=== PATIENT | male | born 1975 | race Two or more races ===

== ENCOUNTER 2016-09-29 09:11 | Outpatient (CLI) | payer MEDICAID | END 2016-09-29 09:12 | disposition home or self-care (01) | DX: R05 Cough (principal) ==

== ENCOUNTER 2016-11-14 09:53 | Outpatient (CLI) | payer MEDICAID ==
[2016-11-14 18:03] LABS: BASOPHILS % (AUTO) 0.5 %; EOSINOPHILS # (AUTO) 0.2 10^3/uL (0.0-0.7); EOSINOPHILS % (AUTO) 2.9 %; HCT - HEMATOCRIT 41.5 % (42.0-52.0); HGB - HEMOGLOBIN 13.9 g/dL (14.0-18.0); LYMPHOCYTES % (AUTO) 33.8 %; MEAN CORPUSCULAR HEMOGLOBIN 28.4 pg (27.0-31.0); MEAN CORPUSCULAR HGB CONC 33.4 g/dL (32.0-36.0); MEAN CORPUSCULAR VOLUME 84.9 fL (80.0-94.0); MEAN PLATELET VOLUME 8.5 fL (7.4-11.4); MONOCYTES # (AUTO) 0.4 10^3/uL (0.0-1.0); MONOCYTES % (AUTO) 7.4 %; NEUTROPHILS # (AUTO) 3.3 10^3/uL (1.5-6.6); NEUTROPHILS % (AUTO) 55.4 %; NUCLEATED RED BLOOD CELLS AUTO 0.2 /100WBC; RED BLOOD COUNT 4.89 10^6/uL (4.70-6.10); RED CELL DISTRIBUTION WIDTH 14.6 % (12.0-15.0)
[2016-11-14 18:54] LABS: ALBUMIN/GLOBULIN RATIO 1.1 (1.0-2.2); BILIRUBIN,TOTAL 0.5 mg/dL (0.2-1.0); BUN - BLOOD UREA NITROGEN 14 mg/dL (6-20); CALCIUM 9.3 mg/dL (8.5-10.3); CARBON DIOXIDE - CO2 27 mmol/L (21-32); CHLORIDE 102 mmol/L (101-111); CHOL/HDL RATIO 4.7 (<5.0); CHOLESTEROL 155 mg/dL; CREATININE 0.9 mg/dL (0.6-1.2); GFR - MDRD 93 (>89); GLUCOSE 208 mg/dL (70-100); HDL CHOLESTEROL 33 mg/dL; SODIUM 137 mmol/L (135-145); TOTAL PROTEIN 7.5 g/dL (6.7-8.2); TRIGLYCERIDES 664 mg/dL
[2016-11-14 20:00] LABS: HEMOGLOBIN A1C 1.13 g/dL
[2016-11-14 20:33] LABS: LDL CHOLESTEROL,DIRECT 56 mg/dL
== END 2016-11-14 09:54 | disposition home or self-care (01) ==
LOC: LAB.F 09:53
PROVIDERS: ATTEND Nurse Practitioner Family
DX: E11.9 Type 2 diabetes mellitus without complications (principal); D64.9 Anemia, unspecified
CPT/HCPCS: 36415; 80053; 80061; 83036; 85025

== ENCOUNTER 2017-02-27 12:34 | Outpatient (CLI) | payer MEDICAID ==
[2017-02-27 20:09] LABS: ALBUMIN/GLOBULIN RATIO 1.1 (1.0-2.2); BILIRUBIN,TOTAL 0.6 mg/dL (0.2-1.0); BUN - BLOOD UREA NITROGEN 19 mg/dL (6-20); CALCIUM 9.9 mg/dL (8.5-10.3); CARBON DIOXIDE - CO2 26 mmol/L (21-32); CHLORIDE 101 mmol/L (101-111); CHOL/HDL RATIO 4.9 (<5.0); CHOLESTEROL 182 mg/dL; GFR - MDRD 82 (>89); GLUCOSE 270 mg/dL (70-100); HDL CHOLESTEROL 37 mg/dL; LDL/HDL RATIO 1.9 (<3.6); SODIUM 135 mmol/L (135-145); TOTAL PROTEIN 8.3 g/dL (6.7-8.2); TRIGLYCERIDES 382 mg/dL; VLDL CHOLESTEROL 76 mg/dL
[2017-02-27 20:54] LABS: HEMOGLOBIN A1C 1.51 g/dL
== END 2017-02-27 12:35 | disposition home or self-care (01) ==
LOC: LAB.F 12:34
PROVIDERS: ATTEND Nurse Practitioner Family
DX: E11.9 Type 2 diabetes mellitus without complications (principal); E78.1 Pure hyperglyceridemia; Z12.5 Encounter for screening for malignant neoplasm of prostate; N52.9 Male erectile dysfunction, unspecified
CPT/HCPCS: 36415; 80053; 80061; 82043; 83036; 84153

== ENCOUNTER 2017-03-25 17:51 | Outpatient (CLI) | payer OTHER, MEDICAID ==
[2017-03-25 18:07] LABS: HCT - HEMATOCRIT 36.9 % (42.0-52.0); HGB - HEMOGLOBIN 13.1 g/dL (14.0-18.0); MEAN CORPUSCULAR HEMOGLOBIN 29.9 pg (27.0-31.0); MEAN CORPUSCULAR HGB CONC 35.4 g/dL (32.0-36.0); MEAN CORPUSCULAR VOLUME 84.5 fL (80.0-94.0); MEAN PLATELET VOLUME 7.4 fL (7.4-11.4); RED BLOOD COUNT 4.37 10^6/uL (4.70-6.10); RED CELL DISTRIBUTION WIDTH 13.6 % (12.0-15.0); WHITE BLOOD COUNT 6.8 x10^3/uL (4.8-10.8)
== END 2017-03-25 17:52 | disposition home or self-care (01) ==
LOC: LAB 17:51
PROVIDERS: ATTEND Student in an Organized Health Care Education/Training Program
DX: D70.9 Neutropenia, unspecified (principal); D63.1 Anemia in chronic kidney disease; R80.9 Proteinuria, unspecified
CPT/HCPCS: 36415; 82570; 84156

== ENCOUNTER 2017-04-18 13:03 | Outpatient (CLI) | payer OTHER, MEDICAID ==
[2017-04-18 14:33] LABS: BILIRUBIN,URINE NEGATIVE (NEGATIVE)
[2017-04-18 14:47] LABS: WBC,URINE 0-3 /HPF (0-3)
--- NOTE | 2017-04-18 20:01 | Ultrasound Report ---
EXAM: RENAL ULTRASOUND EXAM DATE: 04/18/2017 01:54 p.m. CLINICAL HISTORY: CKD-2. COMPARISON: None. TECHNIQUE: Real-time scanning was performed with static images obtained. FINDINGS: Right Kidney: 12.3 x 7.0 x 5.8 cm. The resistive index measures not recorded. Normal echotexture with no stones, contour-deforming masses, or hydronephrosis. Left Kidney: 12.8 x 6.5 x 6.0 cm. The resistive index measures not recorded. Normal echotexture with no stones, contour-deforming masses, or hydronephrosis. Inferior pole cyst measures 1.1 x 0.7 x 0.9 c m. Bladder: Bilateral jets seen. The prevoid bladder volume was 817 cc. The postvoid bladder volume was 95 cc. Prostate measures 4.6 x 3.4 x 4.5 cm. Incidental large splenic calcification noted. IMPRESSION: 1. Small inferior pole left renal cyst, otherwise unremarkable renal ultrasound. 2. 95 cc postvoid residual noted. [facility] Referring Provider Line: [phone] SITE ID: [id number]
[2017-04-20 16:16] LABS: TEST RESULT REPORT
[2017-04-21 09:37] LABS: TEST RESULT REPORT
[2017-04-21 11:01] LABS: GLOM BASEMENT MEMBRANE AB IGG <1.0 AI (<1.0)
[2017-04-21 12:42] LABS: COMPLEMENT COMPONENT C3C 160 mg/dL (90-180); COMPLEMENT COMPONENT C4C 31 mg/dL (16-47); DNA (DS) ANTIBODY <1 IU/mL
[2017-04-21 14:56] LABS: ANA SCREEN NEGATIVE (NEGATIVE)
[2017-04-21 17:36] LABS: LAMBDA LIGHT CHAINS 143 mg/dL (91-240)
[2017-04-21 22:01] LABS: ALPHA 1 GLOBULIN 0.3 g/dL (0.2-0.3); ALPHA 2 GLOBULIN 0.8 g/dL (0.5-0.9); BETA 1 GLOBULIN 0.5 g/dL (0.4-0.6); BETA 2 GLOBULIN 0.4 g/dL (0.2-0.5)
[2017-04-23 16:21] LABS: TEST RESULT REPORT (())
== END 2017-04-18 13:04 | disposition home or self-care (01) ==
LOC: DI 13:03
PROVIDERS: ATTEND Student in an Organized Health Care Education/Training Program
DX: N18.2 Chronic kidney disease, stage 2 (mild) (principal); B19.10 Unspecified viral hepatitis B without hepatic coma; L93.2 Other local lupus erythematosus; M31.30 Wegener's granulomatosis without renal involvement; N00.9 Acute nephritic syndrome with unspecified morphologic changes; D89.89 Other specified disorders involving the immune mechanism, not elsewhere classified; R80.9 Proteinuria, unspecified; D47.2 Monoclonal gammopathy; N30.00 Acute cystitis without hematuria
CPT/HCPCS: 36415; 76770; 81001; 81003; 81599; 83520; 83883; 84155; 84165; 86021; 86038; 86160; 86225; 86317; 86803; 87086; 87340

== ENCOUNTER 2017-06-04 17:32 | Outpatient (CLI) | payer OTHER, MEDICAID ==
[2017-06-04 17:51] LABS: HCT - HEMATOCRIT 38.2 % (42.0-52.0); HGB - HEMOGLOBIN 12.8 g/dL (14.0-18.0)
[2017-06-04 18:16] LABS: CALCIUM 9.5 mg/dL (8.5-10.3); POTASSIUM 4.2 mmol/L (3.5-5.0)
== END 2017-06-04 17:33 | disposition home or self-care (01) ==
LOC: LAB 17:32
PROVIDERS: ATTEND Student in an Organized Health Care Education/Training Program
DX: N05.9 Unspecified nephritic syndrome with unspecified morphologic changes (principal); D50.0 Iron deficiency anemia secondary to blood loss (chronic); D64.9 Anemia, unspecified; R80.9 Proteinuria, unspecified
CPT/HCPCS: 36415; 80048; 82570; 82728; 83540; 84156; 84466; 85014; 85018

== ENCOUNTER 2017-10-14 17:40 | Outpatient (CLI) | payer OTHER ==
[2017-10-14 18:22] LABS: ALBUMIN 4.3 g/dL (3.2-5.5); ALBUMIN/GLOBULIN RATIO 1.1 (1.0-2.2); ALKALINE PHOSPHATASE 52 IU/L (42-121); ALT ALANINE AMINOTRANSFERASE 19 IU/L (10-60); AST ASPARTATE AMINOTRANSFERASE 21 IU/L (10-42); BILIRUBIN,TOTAL 0.4 mg/dL (0.2-1.0); BUN - BLOOD UREA NITROGEN 25 mg/dL (6-20); CALCIUM 9.6 mg/dL (8.5-10.3); CARBON DIOXIDE - CO2 24 mmol/L (21-32); CHLORIDE 98 mmol/L (101-111); CHOL/HDL RATIO 5.9 (<5.0); CHOLESTEROL 178 mg/dL; CREATININE 1.1 mg/dL (0.6-1.2); GFR - MDRD 73 (>89); GLUCOSE 120 mg/dL (70-100); HDL CHOLESTEROL 30 mg/dL; LDL CHOLESTEROL,CALCULATED 91 mg/dL; SODIUM 130 mmol/L (135-145); TOTAL PROTEIN 8.3 g/dL (6.7-8.2); VLDL CHOLESTEROL 57 mg/dL
[2017-10-14 18:25] LABS: HEMOGLOBIN A1C 1.24 g/dL; HEMOGLOBIN A1C % 10.3 % (4.6-6.2)
== END 2017-10-14 17:41 | disposition home or self-care (01) ==
LOC: LAB 17:40
PROVIDERS: ATTEND Nurse Practitioner Family
DX: E11.9 Type 2 diabetes mellitus without complications (principal); E78.1 Pure hyperglyceridemia
CPT/HCPCS: 36415; 80053; 80061; 83036; 83721

== ENCOUNTER 2018-03-18 17:42 | Outpatient (CLI) | payer OTHER ==
[2018-03-18 18:09] LABS: HB2 TOTAL 14.3 g/dL; HEMOGLOBIN A1C 1.13 g/dL; HEMOGLOBIN A1C % 9.4 % (4.6-6.2)
[2018-03-18 18:12] LABS: ALBUMIN 3.7 g/dL (3.2-5.5); ALBUMIN/GLOBULIN RATIO 1.1 (1.0-2.2); ALKALINE PHOSPHATASE 58 IU/L (42-121); ALT ALANINE AMINOTRANSFERASE 33 IU/L (10-60); AST ASPARTATE AMINOTRANSFERASE 28 IU/L (10-42); BILIRUBIN,TOTAL 0.5 mg/dL (0.2-1.0); BUN - BLOOD UREA NITROGEN 13 mg/dL (6-20); CALCIUM 8.7 mg/dL (8.5-10.3); CARBON DIOXIDE - CO2 26 mmol/L (21-32); CHLORIDE 101 mmol/L (101-111); CHOL/HDL RATIO 7.5 (<5.0); CHOLESTEROL 246 mg/dL; CREATININE 1.1 mg/dL (0.6-1.2); GFR - MDRD 73 (>89); GLUCOSE 115 mg/dL (70-100); HDL CHOLESTEROL 33 mg/dL; SODIUM 135 mmol/L (135-145); TOTAL PROTEIN 7.2 g/dL (6.7-8.2)
[2018-03-18 18:31] LABS: LDL CHOLESTEROL,DIRECT 68 mg/dL; LDLD/HDL RATIO 2.1 (<3.6)
== END 2018-03-18 17:43 | disposition home or self-care (01) ==
LOC: LAB 17:42
PROVIDERS: ATTEND Nurse Practitioner Family
DX: E11.9 Type 2 diabetes mellitus without complications (principal)
CPT/HCPCS: 36415; 80053; 80061; 82043; 83036; 83721

== ENCOUNTER 2018-07-05 17:43 | Outpatient (CLI) | payer OTHER ==
[2018-07-05 18:22] LABS: ALBUMIN 4.1 g/dL (3.2-5.5); ALBUMIN/GLOBULIN RATIO 1.2 (1.0-2.2); ALKALINE PHOSPHATASE 66 IU/L (42-121); ALT ALANINE AMINOTRANSFERASE 33 IU/L (10-60); AST ASPARTATE AMINOTRANSFERASE 28 IU/L (10-42); BILIRUBIN,TOTAL 0.5 mg/dL (0.2-1.0); BUN - BLOOD UREA NITROGEN 18 mg/dL (6-20); CALCIUM 9.1 mg/dL (8.5-10.3); CARBON DIOXIDE - CO2 25 mmol/L (21-32); CHLORIDE 97 mmol/L (101-111); CHOL/HDL RATIO 7.1 (<5.0); CHOLESTEROL 256 mg/dL; GFR - MDRD 82 (>89); GLUCOSE 146 mg/dL (70-100); HDL CHOLESTEROL 36 mg/dL; SODIUM 132 mmol/L (135-145); TOTAL PROTEIN 7.6 g/dL (6.7-8.2)
[2018-07-05 18:42] LABS: LDL CHOLESTEROL,DIRECT 83 mg/dL; LDLD/HDL RATIO 2.3 (<3.6)
[2018-07-05 19:46] LABS: HB2 TOTAL 14.7 g/dL; HEMOGLOBIN A1C 1.01 g/dL; HEMOGLOBIN A1C % 8.4 % (4.6-6.2)
== END 2018-07-05 17:44 | disposition home or self-care (01) ==
LOC: LAB 17:43
PROVIDERS: ATTEND Nurse Practitioner Family
DX: E11.65 Type 2 diabetes mellitus with hyperglycemia (principal); E78.1 Pure hyperglyceridemia
CPT/HCPCS: 36415; 80053; 80061; 82043; 83036; 83721; 84443

== ENCOUNTER 2018-10-27 18:00 | Outpatient (CLI) | payer OTHER ==
[2018-10-27 18:36] LABS: HB2 TOTAL 15.7 g/dL; HEMOGLOBIN A1C 1.4 g/dL; HEMOGLOBIN A1C % 10.3 % (4.6-6.2)
[2018-10-27 19:24] LABS: ALBUMIN 4.1 g/dL (3.2-5.5); ALBUMIN/GLOBULIN RATIO 1.2 (1.0-2.2); ALKALINE PHOSPHATASE 81 IU/L (42-121); ALT ALANINE AMINOTRANSFERASE 47 IU/L (10-60); AST ASPARTATE AMINOTRANSFERASE 37 IU/L (10-42); BILIRUBIN,TOTAL 0.8 mg/dL (0.2-1.0); BUN - BLOOD UREA NITROGEN 20 mg/dL (6-20); CALCIUM 9.1 mg/dL (8.5-10.3); CARBON DIOXIDE - CO2 23 mmol/L (21-32); CHLORIDE 92 mmol/L (101-111); CHOLESTEROL 361 mg/dL; CREATININE 1.3 mg/dL (0.6-1.2); GFR - MDRD 60 (>89); GLUCOSE 227 mg/dL (70-100); HDL CHOLESTEROL 36 mg/dL; SODIUM 129 mmol/L (135-145); TOTAL PROTEIN 7.5 g/dL (6.7-8.2)
[2018-10-27 19:55] LABS: LDL CHOLESTEROL,DIRECT 42 mg/dL; LDLD/HDL RATIO 1.2 (<3.6)
== END 2018-10-27 18:01 | disposition home or self-care (01) ==
LOC: LAB 18:00
PROVIDERS: ATTEND Nurse Practitioner Family
DX: E11.9 Type 2 diabetes mellitus without complications (principal); E78.1 Pure hyperglyceridemia
CPT/HCPCS: 36415; 80053; 80061; 82043; 83036; 83721; 84443

== ENCOUNTER 2019-04-29 14:07 | Outpatient (CLI) | payer OTHER ==
[2019-04-29 19:28] LABS: HB2 TOTAL 13.2 g/dL; HEMOGLOBIN A1C 0.99 g/dL
[2019-04-29 19:30] LABS: CALCIUM 9.6 mg/dL (8.5-10.3); CREATININE 1.2 mg/dL (0.6-1.2)
== END 2019-04-29 14:08 | disposition home or self-care (01) ==
LOC: LAB.S 14:07
PROVIDERS: ATTEND Registered Nurse
DX: E11.65 Type 2 diabetes mellitus with hyperglycemia (principal)
CPT/HCPCS: 36415; 80048; 82043; 82570; 83036

== ENCOUNTER 2019-05-01 19:23 | Outpatient (CLI) | payer OTHER ==
[2019-05-01 20:14] LABS: CREATININE,URINE 81.1 mg/dL; MICROALBUM/CREATININE RATIO,UR 2606.7 ug/mg (<30.0); MICROALBUMIN,URINE 211.4 mg/dL (0-300.0)
== END 2019-05-01 19:24 | disposition home or self-care (01) ==
LOC: LAB 19:23
PROVIDERS: ATTEND Registered Nurse
DX: E11.65 Type 2 diabetes mellitus with hyperglycemia (principal)
CPT/HCPCS: 82043; 82570

== ENCOUNTER 2019-11-21 11:27 | Outpatient (CLI) | payer OTHER ==
[2019-11-21 11:50] LABS: BASOPHILS % (AUTO) 0.3 %; EOSINOPHILS # (AUTO) 0.2 10^3/uL (0.0-0.7); EOSINOPHILS % (AUTO) 2.8 %; HGB - HEMOGLOBIN 12.8 g/dL (14.0-18.0); LYMPHOCYTES # (AUTO) 1.8 10^3/uL (1.5-3.5); LYMPHOCYTES % (AUTO) 27.7 %; MEAN CORPUSCULAR HEMOGLOBIN 29.5 pg (27.0-31.0); MEAN CORPUSCULAR HGB CONC 34.2 g/dL (32.0-36.0); MEAN CORPUSCULAR VOLUME 86.2 fL (80.0-94.0); MEAN PLATELET VOLUME 9.4 fL (7.4-11.4); MONOCYTES # (AUTO) 0.6 10^3/uL (0.0-1.0); MONOCYTES % (AUTO) 8.6 %; NEUTROPHILS # (AUTO) 3.9 10^3/uL (1.5-6.6); NEUTROPHILS % (AUTO) 60.1 %; PLT - PLATELET COUNT 176 10^3/uL (130-450); RED BLOOD COUNT 4.34 10^6/uL (4.70-6.10); RED CELL DISTRIBUTION WIDTH 13.2 % (12.0-15.0); WHITE BLOOD COUNT 6.4 x10^3/uL (4.8-10.8)
[2019-11-21 12:07] LABS: HB2 TOTAL 13.2 g/dL; HEMOGLOBIN A1C 1.04 g/dL; HEMOGLOBIN A1C % 9.4 % (4.6-6.2)
[2019-11-21 12:11] LABS: ALBUMIN 3.9 g/dL (3.2-5.5); ALBUMIN/GLOBULIN RATIO 1.2 (1.0-2.2); ALKALINE PHOSPHATASE 87 IU/L (42-121); ALT ALANINE AMINOTRANSFERASE 44 IU/L (10-60); AST ASPARTATE AMINOTRANSFERASE 33 IU/L (10-42); BILIRUBIN,TOTAL 0.6 mg/dL (0.2-1.0); BUN - BLOOD UREA NITROGEN 22 mg/dL (6-20); CALCIUM 8.8 mg/dL (8.5-10.3); CARBON DIOXIDE - CO2 24 mmol/L (21-32); CHLORIDE 98 mmol/L (101-111); CHOLESTEROL 113 mg/dL; CREATININE 1.3 mg/dL (0.6-1.2); GLUCOSE 181 mg/dL (70-100); HDL CHOLESTEROL 28 mg/dL; SODIUM 132 mmol/L (135-145); TOTAL PROTEIN 7.2 g/dL (6.7-8.2)
[2019-11-21 12:46] LABS: LDL CHOLESTEROL,DIRECT 36 mg/dL; LDLD/HDL RATIO 1.3 (<3.6)
== END 2019-11-21 11:28 | disposition home or self-care (01) ==
LOC: LAB 11:27
PROVIDERS: ATTEND Registered Nurse
DX: E11.22 Type 2 diabetes mellitus with diabetic chronic kidney disease (principal); I12.9 Hypertensive chronic kidney disease with stage 1 through stage 4 chronic kidney disease, or unspecified chronic kidney disease; N18.2 Chronic kidney disease, stage 2 (mild); Z79.4 Long term (current) use of insulin; E78.1 Pure hyperglyceridemia
CPT/HCPCS: 36415; 80053; 80061; 83036; 83721; 84443; 85025

== ENCOUNTER 2020-03-12 14:13 | Outpatient (CLI) | payer OTHER ==
[2020-03-12 14:50] LABS: ALBUMIN 4.3 g/dL (3.2-5.5); ALBUMIN/GLOBULIN RATIO 1.2 (1.0-2.2); ALKALINE PHOSPHATASE 92 IU/L (42-121); ALT ALANINE AMINOTRANSFERASE 38 IU/L (10-60); AST ASPARTATE AMINOTRANSFERASE 29 IU/L (10-42); BILIRUBIN,TOTAL 0.7 mg/dL (0.2-1.0); BUN - BLOOD UREA NITROGEN 30 mg/dL (6-20); CARBON DIOXIDE - CO2 24 mmol/L (21-32); CHLORIDE 100 mmol/L (101-111); CHOL/HDL RATIO 3.4 (<5.0); CHOLESTEROL 102 mg/dL; CREATININE 1.3 mg/dL (0.6-1.2); GLUCOSE 102 mg/dL (70-100); HDL CHOLESTEROL 30 mg/dL; LDL CHOLESTEROL,CALCULATED 21 mg/dL; LDL/HDL RATIO 0.7 (<3.6); SODIUM 134 mmol/L (135-145); TOTAL PROTEIN 7.8 g/dL (6.7-8.2); VLDL CHOLESTEROL 51 mg/dL
[2020-03-12 14:55] LABS: CREATININE,URINE 112.1 mg/dL
[2020-03-12 15:28] LABS: MICROALBUM/CREATININE RATIO,UR 783.2 ug/mg (<30.0); MICROALBUMIN,URINE 87.8 mg/dL (0-300.0)
[2020-03-12 19:27] LABS: HEMOGLOBIN A1c% 8.2 % (4.27-6.07)
== END 2020-03-12 14:14 | disposition home or self-care (01) ==
LOC: LAB 14:13
PROVIDERS: ATTEND Internal Medicine
DX: E11.9 Type 2 diabetes mellitus without complications (principal); I10 Essential (primary) hypertension; E78.5 Hyperlipidemia, unspecified
CPT/HCPCS: 36415; 80053; 80061; 82043; 82570; 83036; 83721

== ENCOUNTER 2020-06-19 12:00 | Outpatient (CLI) | payer OTHER ==
[2020-06-19 13:02] LABS: ALT ALANINE AMINOTRANSFERASE 43 IU/L (10-60); AST ASPARTATE AMINOTRANSFERASE 29 IU/L (10-42); CHOL/HDL RATIO 4.3 (<5.0); CHOLESTEROL 124 mg/dL; HDL CHOLESTEROL 29 mg/dL
[2020-06-19 14:20] LABS: HEMOGLOBIN A1c% 7.6 % (4.27-6.07)
[2020-06-19 15:33] LABS: LDL CHOLESTEROL,DIRECT 57 mg/dL
== END 2020-06-19 12:01 | disposition home or self-care (01) ==
LOC: LAB 12:00
PROVIDERS: ATTEND Internal Medicine
DX: E11.9 Type 2 diabetes mellitus without complications (principal); E78.5 Hyperlipidemia, unspecified
CPT/HCPCS: 36415; 80061; 83036; 83721; 84450; 84460

== ENCOUNTER 2020-10-16 12:58 | Outpatient (CLI) | payer OTHER ==
[2020-10-16 14:01] LABS: ALBUMIN 4.4 g/dL (3.2-5.5); ALBUMIN/GLOBULIN RATIO 1.3 (1.0-2.2); ALKALINE PHOSPHATASE 73 IU/L (42-121); ALT ALANINE AMINOTRANSFERASE 43 IU/L (10-60); AST ASPARTATE AMINOTRANSFERASE 32 IU/L (10-42); BILIRUBIN,TOTAL 0.6 mg/dL (0.2-1.0); BUN - BLOOD UREA NITROGEN 20 mg/dL (6-20); CALCIUM 9.7 mg/dL (8.5-10.3); CARBON DIOXIDE - CO2 24 mmol/L (21-32); CHLORIDE 103 mmol/L (101-111); CHOL/HDL RATIO 4.2 (<5.0); CHOLESTEROL 142 mg/dL; CREATININE 1.2 mg/dL (0.6-1.2); GFR - MDRD 65 (>89); GLUCOSE 112 mg/dL (70-100); HDL CHOLESTEROL 34 mg/dL; POTASSIUM 4.3 mmol/L (3.5-5.0); SODIUM 136 mmol/L (135-145); TOTAL PROTEIN 7.9 g/dL (6.7-8.2); TRIGLYCERIDES 453 mg/dL
[2020-10-16 14:22] LABS: CREATININE,URINE 60.3 mg/dL; MICROALBUM/CREATININE RATIO,UR 1102.8 ug/mg (<30.0); MICROALBUMIN,URINE 66.5 mg/dL (0-300.0)
[2020-10-16 14:27] LABS: ESTIMATED AVERAGE GLUCOSE 163 mg/dL (70-100); HEMOGLOBIN A1c% 7.3 % (4.27-6.07)
[2020-10-16 15:31] LABS: LDL CHOLESTEROL,DIRECT 58 mg/dL; LDLD/HDL RATIO 1.7 (<3.6)
== END 2020-10-16 12:59 | disposition home or self-care (01) ==
LOC: LAB 12:58
PROVIDERS: ATTEND Internal Medicine
DX: E11.9 Type 2 diabetes mellitus without complications (principal); I10 Essential (primary) hypertension; E78.5 Hyperlipidemia, unspecified
CPT/HCPCS: 36415; 80053; 80061; 82043; 82570; 83036; 83721

== ENCOUNTER 2024-02-13 19:53 | Emergency (ER) | payer OTHER ==
--- NOTE | 2024-02-13 20:51 | ED Physician Documentation ---
History of Present Illness - Stated complaint Stated Complaint: LT ANKLE PX - Chief complaint Chief Complaint: Ext Problem - History obtained from History obtained from: Patient - Additonal information Additional information: HPI from patient. Patient complains of atraumatic left ankle and left lower leg swelling with mild painful discomfort, gradual onset x few days. He had an airplane flight five days ago with symptoms started after this flight. Denies h/o similar symptoms. Denies chest pain, dyspnea, fever, rash. Review of Systems Constitutional: denies: Fever, Chills, Sweats Cardiac: reports: Pedal edema. denies: Chest pain / pressure Respiratory: denies: Dyspnea Skin: denies: Rash PD PAST MEDICAL HISTORY - Past Medical History Past Medical History: Yes Cardiovascular: Hypertension, High cholesterol Endocrine/Autoimmune: Type 2 diabetes : Other Psych: None Musculoskeletal: Other - Past Surgical History Past Surgical History: Yes - Present Medications Home Medications: Ambulatory Orders Medication Instructions Recorded Confirmed Metformin HCl 1,000 mg PO BID 06/05/14 02/13/24 [place]-3 Fatty Acids/Fish Oil [Fish 1 each PO DAILY 06/05/14 02/13/24 Oil 1,000 mg Capsule] Simvastatin 40 mg PO QPM 06/05/14 02/13/24 Insulin Glargine [Lantus Solostar] 40 unit SUBQ DAILY 11/29/14 02/13/24 Cholecalciferol (Vitamin D3) 1,000 unit PO DAILY 04/01/17 02/13/24 [Vitamin D3] Folic Acid/Vit B Complex and C 1 each PO DAILY 04/01/17 02/13/24 [B-Complex Plus Vitamin C] Insulin Lispro [Humalog Kwikpen 5 units SUBQ TIDWM 04/01/17 02/13/24 U-100] gemfibroziL [Gemfibrozil] 1,200 mg PO DAILY 04/01/17 02/13/24 lisinopriL [Lisinopril] 10 mg PO ONCE 04/01/17 02/13/24 Atorvastatin [Lipitor] 10 mg 02/13/24 Metoprolol Succinate [Toprol Xl] 50 mg DAILY 02/13/24 02/13/24 Semaglutide [Ozempic] 2 mg 02/13/24 - Allergies Allergies/Adverse Reactions: Allergies Allergy/AdvReac Type Severity Reaction Status Date / Time lidocaine Allergy Unknown Verified 02/13/24 20:12 - Social History Does the pt smoke?: No Smoking Status: Never smoker Does the pt drink ETOH?: No Does the pt have substance abuse?: No - Immunizations Immunizations are current?: Yes - POLST Patient has POLST: No PD ED PE NORMAL - Vitals Vital signs reviewed: Yes - General General: Alert and oriented X 3, No acute distress, Well developed/nourished - Respiratory Respiratory: No respiratory distress PD ED PE EXPANDED - Extremities [place] LE visual: 1 - swelling (mild/subtle swelling without erythema or TTP; the edema is circumferential) Results - Vitals Vitals: Vital Signs - 24 hr 02/13/24 02/13/24 20:06 23:01 Temperature 36.5 C Heart Rate 102 H 62 Respiratory 19 16 Rate Blood Pressure 143/87 H 138/76 H O2 Saturation 99 98 Oxygen O2 Source Room air - Rads (name of study) left ankle xrays Relevant Findings:: Prelim report reviewed, See rad report LLE US (venous) Relevant Findings:: Prelim report reviewed, See rad report PD Medical Decision Making - ED course Complexity details: reviewed results, re-evaluated patient, considered differential, d/w patient ED course: Unremarkable plain-film x-rays of the left ankle. No DVT on left lower extremity ultrasound; The ultrasound does demonstrate "presumed soft tissue hematoma seen along the lateral ankle" (per radiologist interpretation). Given no history of trauma, this is unusual finding yet does not but is not a concerning one nor does it indicate a specific treatment nor further testing. Results discussed with patient, return precautions reviewed. Departure - Departure Disposition: 01 Home, Self Care Clinical Impression: Ankle swelling Condition: Good Instructions: ED Leg Swelling Unilateral Comments: There are no concerning findings on the x-rays and the ultrasound does not show any evidence of blood clot. As we discussed, there does appear to be a hematoma on the ultrasound. The hematoma is the bleeding that results from 1 or more br oken up blood vessels. It is not clear why he would have a hematoma in the ankle but this is not a dangerous problem and should slowly resolve as the blood gets reabsorbed into your system over the next several days. Discharge Date/Time: 02/13/24 23:00
--- NOTE | 2024-02-13 21:27 | XRAY Report ---
PROCEDURE: Ankle 3+V LT INDICATIONS: left ankle swelling/pain with walking TECHNIQUE: 3 views of the ankle were acquired. COMPARISON: None. FINDINGS: Bones: There is focal irregularity seen involving the medial talar dome. Milder degenerative changes are seen elsewhere. Soft tissues: There is a mild tibiotalar joint effusion. Achilles tendon appears normal. IMPRESSION: Focal irregularity seen involving the lateral talar dome. Osteochondral injury is suspected. If it would be helpful for clinical management decision making, please consider a dedicated, schedule d ankle MRI for further evaluation (assuming that there is no contraindication). Reviewed by: Kenny Stein MD on 02/13/2024 8:26 PM [facility] Approved by: Kenny Stein MD on 02/13/2024 8:26 PM NAIN Station ID: [id number]
--- NOTE | 2024-02-13 22:34 | Ultrasound Report ---
PROCEDURE: Duplex Ext Veins Left INDICATIONS: atraumatic left ankle/lower leg swelling and pain TECHNIQUE: Real-time imaging, as well as color and pulse Doppler interrogation, were performed of the lower extr emity deep veins from the inguinal ligament to the popliteal fossa. Attempted visualization of the ca lf veins was performed. COMPARISON: None. FINDINGS: The deep veins are normally compressible, and free of intraluminal thrombus. Color and pu lse Doppler demonstrate normal phasic intraluminal flow. There is normal augmentation response to di stal compression maneuver. Within the left lateral ankle, there is an irregular soft tissue focus seen, with low echogenicity an d no abnormal vascularity measuring 3.6 x 1.3 x 4.5 cm. IMPRESSION: No deep venous thrombosis of the visualized lower extremity. Presumed soft tissue hematoma seen along the lateral ankle. Note: Concordant preliminary findings given by the fiber optic splicer upon the completion of the examination to Dr. Ortiz. Reviewed by: Kenny Stein MD on 02/13/2024 9:33 PM [facility]IN Approved by: Kenny Stein MD on 02/13/2024 9:33 PM [facility] Station ID: [id number]
[2024-02-13 23:07] VITALS: BP 138/76; O2SAT 98
== END 2024-02-13 23:00 | disposition home or self-care (01) ==
LOC: ED 19:53
DX: R60.0 Localized edema (principal)
CPT/HCPCS: 99283; 99284